=== PATIENT | female | born 1965 | race Caucasian/White ===

== ENCOUNTER 2021-04-23 15:09 | Outpatient (CLI) | payer BC | END 2021-04-23 15:10 | disposition critical access hospital (66) | LOC: EMS 15:09 | DX: R07.89 Other chest pain (principal); R06.00 Dyspnea, unspecified; R11.0 Nausea; R61 Generalized hyperhidrosis | CPT/HCPCS: A0425; A0429 ==

== ENCOUNTER 2021-04-23 15:29 | Emergency (ER) | payer BC ==
--- OUTSIDE RECORDS SUMMARY | 2021-04-23 16:02 | EXTERNAL MEDICAL SUMMARY RPT | Continuity of Care Document ---
:1965 Demographics Phone Unavailable Preferred Language Unknown Marital Status Unknown Yazidism Affiliation Unknown Race Unknown Ethnic Group Unknown Author Organization [facility] Address [address] [phone] Phone Allergies Encounters Medications Problems Results
[2021-04-23 16:23] LABS: BASOPHILS # (AUTO) 0.1 10^3/uL (0.0-0.1); BASOPHILS % (AUTO) 0.9 %; EOSINOPHILS % (AUTO) 0.5 %; HCT - HEMATOCRIT 46.5 % (37.0-47.0); HGB - HEMOGLOBIN 15.5 g/dL (12.0-16.0); LYMPHOCYTES # (AUTO) 2.1 10^3/uL (1.5-3.5); LYMPHOCYTES % (AUTO) 26.6 %; MEAN CORPUSCULAR HEMOGLOBIN 30.4 pg (27.0-31.0); MEAN CORPUSCULAR HGB CONC 33.3 g/dL (32.0-36.0); MEAN CORPUSCULAR VOLUME 91.2 fL (81.0-99.0); MEAN PLATELET VOLUME 10.1 fL (7.9-10.8); MONOCYTES # (AUTO) 0.4 10^3/uL (0.0-1.0); MONOCYTES % (AUTO) 5.4 %; NEUTROPHILS # (AUTO) 5.1 10^3/uL (1.5-6.6); NEUTROPHILS % (AUTO) 66.3 %; PLT - PLATELET COUNT 232 10^3/uL (130-450); RED CELL DISTRIBUTION WIDTH 13.5 % (12.0-15.0); WHITE BLOOD COUNT 7.7 x10^3/uL (4.8-10.8)
--- NOTE | 2021-04-23 16:27 | ED Physician Documentation ---
History of Present Illness - Stated complaint Stated Complaint: CHEST TIGHTNESS - Additonal information Additional information: 56-year-old female presents the emergency department for evaluation of what she initially thought was an anxiety attack. She reports that she was speaking on the phone with her ex- whom she had not spoken to in nearly 4 years and got very upset. She began to have shortness of air, shaking sweating nausea and felt very anxious. She felt like her heart was pounding out of her chest. She states that this is typical of her anxiety and panic attacks but they usually go away after 1 to 2 hours this persisted for about 3 hours therefore she went to a fire station and had them check her blood pressure. While at the EMS station her blood pressure was greater than 200 and she was advised to come to the ER. She reports a remote history of a myocardial infarction about 10 years ago with a negative stress test at that time. This was treated at [facility]. She denies that she takes any medications prescribed by a doctor at this time she does vape daily. Denies any history of hypertension, But has not checked her blood pressure many years. Review of Systems Constitutional: denies: Fever, Chills Eyes: reports: Reviewed and negative Ears: reports: Reviewed and negative Nose: reports: Reviewed and negative Throat: reports: Reviewed and negative Cardiac: reports: Chest pain / pressure, Palpitations. denies: Pedal edema, Calf pain Respiratory: reports: Dyspnea. denies: Cough GI: reports: Abdominal Pain, Nausea. denies: Vomiting : reports: Reviewed and negative Skin: reports: Reviewed and negative Musculoskeletal: reports: Reviewed and negative Neurologic: reports: Reviewed and negative Psychiatric: reports: Anxiety Endocrine: reports: Reviewed and negative PD PAST MEDICAL HISTORY - Present Medications Home Medications: Ambulatory Orders Medication Instructions Recorded Confirmed Lisinopril [Zestril] 10 mg PO QDAC #30 tablet 04/23/21 - Allergies Allergies/Adverse Reactions: Allergies Allergy/AdvReac Type Severity Reaction Status Date / Time medrin Allergy Rash Uncoded 04/23/21 16:30 PD ED PE EXPANDED - General General: Alert, Anxious - Cardiac Cardiac: Regular Rate, Radial strong equal, Pedal strong equal, Cap refill < 2 sec. No: Murmur Present - Respiratory Respiratory: Clear to ausultation zenon. No: Distress, Labored - Abdomen Abdomen: Normal Bowel sounds. No: Tender to palpation - Extremities Extremities: Normal. No: Deformity, Tenderness - Neuro Neuro: Alert and Oriented X 3, CNII-XII intact - GCS Eye Opening: Spontaneous Motor: Obeys Commands Verbal: Oriented Total: 15 - Psych Psych: Anxious (Becomes quite vehement verbose and agitated when speaking about her ex-) Results - Vitals Vitals: Vital Signs - 24 hr 04/23/21 04/23/21 04/23/21 15:28 16:00 16:42 Temperature 36.8 C Heart Rate 94 88 89 Respiratory 22 15 14 Rate Blood Pressure 192/107 H 163/111 H 184/119 H O2 Saturation 99 93 95 04/23/21 17:23 Temperature Heart Rate 82 Respiratory 16 Rate Blood Pressure 164/103 H O2 Saturation 95 Oxygen O2 Source Room air - EKG (time done) 1643 Rate: Rate (enter#) (82) Rhythm: NSR [place]: Normal QRS: LVH, Poor R wave progression Compare to prior EKG: Old EKG unavailable Computer interpretation: Agree with computer - Labs Labs: Laboratory Tests 04/23/21 04/23/21 04/23/21 16:19 16:19 16:19 WBC 7.7 RBC 5.10 Hgb 15.5 Hct 46.5 MCV 91.2 MCH 30.4 MCHC 33.3 RDW 13.5 Plt Count 232 MPV 10.1 Neut # (Auto) 5.1 Lymph # (Auto) 2.1 [place] # (Auto) 0.4 Eos # (Auto) 0.0 Baso # (Auto) 0.1 Absolute Nucleated RBC 0.00 Nucleated RBC % 0.0 Sodium 139 Potassium 3.9 Chloride 108 Carbon Dioxide 23 Anion Gap 8.0 BUN 18 Creatinine 0.8 Estimated GFR (MDRD) 74 L Glucose 99 Calcium 9.8 Total Bilirubin 0.5 AST 24 ALT 48 Alkaline Phosphatase 104 Troponin I High Sens 5.7 Total Protein 7.5 Albumin 4.2 Globulin 3.3 Albumin/Globulin Ratio 1.3 Lipase 22 - Rads (name of study) CXR Radiology: Final report received (No acute cardiopulmonary process) PD MEDICAL DECISION MAKING - ED course Complexity details: reviewed results, re-evaluated patient, d/w patient ED course: 56-year-old female presents emergency department for evaluation of shortness of air anxiety nausea sweating and shaking. This event lasted about 3 hours and followed a very heated conversation with her ex-. She went to a local EMS station where they took her blood pressure and noted that it was higher than 200 therefore she comes to the emergency department. She denies a history of hypertension but is a daily smoker and is obese. However she has not checked her blood pressure in many years. She denies that she has chest pain. On presentation here her blood pressure was greater than 190 systolic. Screening EKG is nonischemic. High-sensitivity troponin is negative. Screening labs and electrolytes are also without acute worrisome abnormalities. Chest x- ray did not show any focal opacities cardiomegaly or pleural effusion. Here in the emergency department patient did receive 10 mg of lisinopril with a moderate reduction in her blood pressure to about 170/90. She does remain somewhat anxious but she states that this is her normal anxiety level. Reassuringly she does not have signs of endorgan perfusion such as encephalopathy or acute kidney injury. Patient is encouraged to establish with a primary care provider and will be r eferred to [facility]. She will be started on lisinopril. Advised to return to the ER if she develops any chest pain or shortness of air. Given her age and moderate risk factors she may benefit from an outpatient stress test and echocardiogram. Departure - Departure Disposition: 01 Home, Self Care Clinical Impression: Anxiety attack Hypertension Qualifiers: Hypertension type: unspecified Qualified Code(s): I10 - Essential (primary) hypertension Condition: Stable Record reviewed to determine appropriate education?: Yes Follow-Up: [facility] [Provider Group] Prescriptions: Lisinopril [Zestril] 10 mg PO QDAC #30 tablet Comments: Carri you were seen in the emergency department today for shortness of air nausea sweating and palpitations. I do suspect that you are having a panic attack. However you do have the risk factors for heart disease namely your nicotine use as well as obesity and the elevated blood pressures. I think it is important that we start you on medication to control your blood pressure. Please fill the prescription for the lisinopril and take every day at the same time typically in the morning. I also recommend that you take your blood pressure at least once a day at the same time. Your screening labs today were essentially normal. Your EKG did not show any worrisome findings and your chest x-ray was unremarkable. In the long-term however weight loss and tobacco cessation is advised. You may benefit from outpatient referral for an echocardiogram or a stress test. [facility] is accepting new patients and I do recommend that you call to schedule a follow-up appointment with them in the next 1 to 2 weeks. If at any point you have return of your symptoms, develop chest pain or shortness of air that does not resolve with your typical measures, please return to the ER for a second evaluation.
--- NOTE | 2021-04-23 16:36 | XRAY Report ---
PROCEDURE: Chest 1 View X-Ray INDICATIONS: Chest Pain TECHNIQUE: One view of the chest was acquired. COMPARISON: None FINDINGS: Surgical changes and devices: None. Lungs and pleura: On the semiupright images, no large pneumothorax or large pleural effusions can be seen. No focal infiltrates are seen. Mediastinum: Mediastinal contours appear normal. Heart size is normal. Bones and chest wall: No suspicious bony lesions. Overlying soft tissues appear unremarkable. IMPRESSION: Portable chest within normal limits for age. Reviewed by: Nakul Davila MD on 04/23/2021 3:34 PM RENE Approved by: Nakul Davila MD on 04/23/2021 3:34 PM RENE Station ID: [id number]
[2021-04-23 16:40] LABS: ALBUMIN 4.2 g/dL (3.2-5.5); ALBUMIN/GLOBULIN RATIO 1.3 (1.0-2.2); BILIRUBIN,TOTAL 0.5 mg/dL (0.2-1.0); CALCIUM 9.8 mg/dL (8.5-10.3); CREATININE 0.8 mg/dL (0.4-1.0); POTASSIUM 3.9 mmol/L (3.5-5.0); TOTAL PROTEIN 7.5 g/dL (6.7-8.2)
[2021-04-23] MEDS ORDERED: lisinopriL 5 MG TABLET PO STA (17:04)
[2021-04-23 18:12] VITALS: BP 161/99
== END 2021-04-23 18:18 | disposition home or self-care (01) ==
LOC: EDUNIT# → ED 15:29
DX: F41.0 Panic disorder [episodic paroxysmal anxiety] (principal); I10 Essential (primary) hypertension; F17.290 Nicotine dependence, other tobacco product, uncomplicated
CPT/HCPCS: 36415; 71045; 80053; 83690; 84484; 85025; 93005; 99284; A9270